=== PATIENT | male | born 1950 | race American Indian/Alaskan Native ===

== ENCOUNTER 2017-08-13 12:09 | Outpatient (CLI) | payer MEDICARE, OTHER ==
[2017-08-13 12:23] LABS: Mean Corpuscular HGB Conc 31 % (32-34); Mean Corpuscular Volume 81 fl (84-94); Platelet Count 193 K/mm3 (140-440); Red Blood Count 5.97 M/mm3 (3.65-5.03); Red Cell Distribution Width 14.8 % (13.2-15.2)
[2017-08-13 12:25] LABS: Hematocrit 48.2 % (35.5-45.6); Mean Corpuscular Hemoglobin 25 pg (28-32)
[2017-08-13 12:49] LABS: Alanine Aminotransferase 8 units/L (7-56); Albumin 4.3 g/dL (3.9-5); BUN/Creatinine Ratio 16; Blood Urea Nitrogen 13 mg/dL (9-20); Calcium 8.9 mg/dL (8.4-10.2); Hemolysis Index 1
[2017-08-13 12:59] LABS: Bilirubin,Direct < 0.2 mg/dL (0-0.2)
== END 2017-08-13 12:10 | disposition home or self-care (01) ==
LOC: LAB 12:09
PROVIDERS: ATTEND Specialist
DX: R56.9 Unspecified convulsions (principal); Q28.2 Arteriovenous malformation of cerebral vessels
CPT/HCPCS: 36415; 80053; 80185; 82248; 85027

== ENCOUNTER 2017-09-13 11:38 | Outpatient (CLI) | payer MEDICARE | END 2017-09-13 11:39 | disposition home or self-care (01) | LOC: LAB 11:38 | PROVIDERS: ATTEND Specialist | DX: G40.209 Localization-related (focal) (partial) symptomatic epilepsy and epileptic syndromes with complex partial seizures, not intractable, without status epilepticus (principal) | CPT/HCPCS: 36415 ==

== ENCOUNTER 2018-05-26 10:11 | Inpatient (IN) | payer MEDICARE ==
[2018-05-26] MEDS ORDERED: KEPPRA 1,000 MG in D5W 100 ML IV ONE (10:28)
--- NOTE | 2018-05-26 10:28 | Emergency Department Report ---
ED Seizure HPI - General Stated Complaint: SEIZURE Time Seen by Provider: 05/26/18 10:20 Source: patient, EMS Mode of arrival: Stretcher Limitations: Altered Mental Status - History of Present Illness Initial Comments: Patient is a 68-year-old male that presents emergency room with complaints of seizure activity. Report received from EMS. EMS states that the told him that he has not had a seizure for 9 months and has been controlled on his current medications. Patient is currently postictal and is not answering questions. Patient patient answered questions yes to everything. Patient is awake. No medication given by EMS. Patient lost control his bladder in route. is at bedside and states the patient has had 5 grand mal seizures and multiple absence seizures over the last 24 hours. states that the number of absence seizure too high to count. states the patient is compliant with medications I had seizures for 9 months. Patient had a recent med changes from Dilantin and carbamazepine. MD Complaint: seizure, loss of consciousness -: Sudden Description of Episode: loss of consciousness, tonic-clonic movement, bladder incontinence, post-event confusion -: second(s) Witnessed:: Yes Trauma: No Seizure History: known seizure disorder, compliant with medication Place: home Possible Precipitating Event: none Associated Symptoms: denies: chest pain, confusion, cough, diaphoresis, fever/ch ills, loss of appetite, malaise, rash, shortness of breath, syncope, weakness, tongue injury, shoulder dislocation Treatments Prior to Arrival: none - Related Data Home Medications Medication Instructions Recorded Confirmed Last Taken OXcarbazepine [Trileptal] 1,200 mg PO QAM 05/26/18 05/26/18 Unknown OXcarbazepine [Trileptal] 600 mg PO QPM 05/26/18 05/26/18 Unknown Pravastatin [Pravachol] 20 mg PO QHS 05/26/18 05/26/18 Unknown Tolterodine [Detrol LA] 2 mg PO QDAY 05/26/18 05/26/18 Unknown Ziprasidone HCl [Geodon] 80 mg PO DAILY 05/26/18 05/26/18 Unknown Allergies Allergy/AdvReac Type Severity Reaction Status Date / Time No Known Allergies Allergy Unverified 05/26/18 10:35 ED Review of Systems ROS: Stated complaint: SEIZURE Other details as noted in HPI Comment: Unobtainable due to pts medical conditions ED Past Medical Hx - Past Medical History Previous Medical History?: Yes Hx Seizures: Yes Additional medical history: avm. - Surgical History Past Surgical History?: No - Family History Family history: no significant - Social History Smoking Status: Never Smoker Substance Use Type: None - Medications Home Medications: Home Medications Medication Instructions Recorded Confirmed Last Taken Type OXcarbazepine [Trileptal] 1,200 mg PO QAM 05/26/18 05/26/18 Unknown History OXcarbazepine [Trileptal] 600 mg PO QPM 05/26/18 05/26/18 Unknown History Pravastatin [Pravachol] 20 mg PO QHS 05/26/18 05/26/18 Unknown History Tolterodine [Detrol LA] 2 mg PO QDAY 05/26/18 05/26/18 Unknown History Ziprasidone HCl [Geodon] 80 mg PO DAILY 05/26/18 05/26/18 Unknown History ED Physical Exam - General Limitations: Altered Mental Status General appearance: alert, in no apparent distress - Head Head exam: Present: atraumatic, normocephalic - Eye Eye exam: Present: normal appearance - ENT ENT exam: Present: mucous membranes moist - Neck Neck exam: Present: normal inspection - Respiratory Respiratory exam: Present: normal lung sounds bilaterally. Absent: respiratory distress - Cardiovascular Cardiovascular Exam: Present: regular rate, normal rhythm. Absent: systolic mu rmur, diastolic murmur, rubs, gallop - GI/Abdominal GI/Abdominal exam: Present: soft, normal bowel sounds - Rectal Rectal exam: Present: deferred - Extremities Exam Extremities exam: Present: normal inspection - Back Exam Back exam: Present: normal inspection - Neurological Exam Neurological exam: Present: alert, altered - Skin Skin exam: Present: warm, dry, intact, normal color. Absent: rash ED Course Vital Signs 05/26/18 05/26/18 10:29 10:32 Temperature 98.0 F 98.0 F Pulse Rate 94 H 94 H Respiratory 16 16 Rate Blood Pressure 156/92 Blood Pressure 156/92 [Right] O2 Sat by Pulse 97 16 L Oximetry - Reevaluation(s) Reevaluation #1: She's had multiple absence seizures in the ER. Patient still has not returned to baseline mentation. Patient has been given Ativan and Keppra. Patient will be admitted to the hospitalist service. Patient's family agrees with plan of care. 05/26/18 13:04 - Consultations Consultation #1: Hospitalist consultation for admission. Hospitalist to admit patient. Bridging orders placed 05/26/18 13:10 ED Medical Decision Making - Lab Data Result diagrams: 05/26/18 10:37 05/26/18 10:37 - EKG Data -: EKG Interpreted by [facility] EKG shows normal: sinus rhythm, axis, intervals, QRS complexes, ST-T waves Rate: normal - Radiology Data Radiology results: report reviewed CT HEAD WITHOUT CONTRAST INDICATION: Seizure. COMPARISON: September 2010 brain imaging and 05/23/2009 brain MRI. FINDINGS: Noncontrast head CT again demonstrates a large left frontal arteriovenous malformation measuring up to 6 x 3.1 cm on axial series 2, image 38 with few scattered calcifications. Numerous large draining veins/vessel tortuosity also noted throughout the left cerebral hemisphere, most prominent anterosuperiorly and parafalcine. Associated mass effect/effacement upon the left frontal horn also again noted. Approximately 2 cm left frontal white matter hypodensity/encephalomalacia also again noted on axial image 47, series 2, amongst others. No definite acute infarct, hemorrhage, mass effect or midline shift. Normal posterior fossa with preserved basilar cisterns. Normal imaged eye globes. Rightward nasal septal deviation anteriorly. Hypoplastic/aplastic left frontal sinus. Clear remainder imaged paranasal sinuses and mastoid air cells. Intact calvarium. Normal scalp. Few radiopaque dental materials. CONCLUSION: No acute intracranial CT abnormality with large left frontal AVM and its associated changes again noted, stable dating back to April 2009, as described. Please correlate. Thank you for the opportunity to participate in this patient's care. - Medical Decision Making Patient is a 68-year-old male presents emergency room with multiple uncontrolled seizures. Patient has a seizure history but has not had seizures for over 9 months. Patient has a history of AVM. CT is positive for no other acute process noted. Patient labs unremarkable. Patient has had multiple seizures. Patient had witnessed seizures here. Patient has 2 seizure types, patient has had absent and grand mal seizures. Patient to be admitted to the hospitalist service. Family is in agreement with plan of care. Patient is still altered and has not returned back to baseline. - Differential Diagnosis her mental status. Seizure. Seizure disorder. Noncompliance Critical Care Time: Yes Critical care attestation.: If time is entered above; I have spent that time in minutes in the direct care of this critically ill patient, excluding procedure time. Critical Care Time: 45 minutes ED Disposition Clinical Impression: AVM (arteriovenous malformation) brain, Seizure Uncontrolled seizures Qualifiers: Convulsion type: complex febrile Qualified Code(s): R56.01 - Complex febrile convulsions Altered mental status Qualifiers: Altered mental status type: unspecified Qualified Code(s): R41.82 - Altered mental status, unspecified Disposition: [id number] OP ADMIT IP TO THIS HOSP Is pt being admited?: Yes Does the pt Need Aspirin: No Condition: Critical Time of Disposition: 13:09
[2018-05-26] MEDS ORDERED: ATIVAN ONE (10:54)
[2018-05-26] MEDS ORDERED: ATIVAN IV ONE ×2 (11:00→13:17)
[2018-05-26] MEDS ORDERED: KEPPRA 1,000 MG/NS 0.75% 100ML 1,000 MG/100 ML BAG IV ONE (11:00)
[2018-05-26 11:14] LABS: Basophils % (Auto) 0.3 % (0.0-1.8); Hematocrit 47.1 % (35.5-45.6); Hemoglobin 14.8 gm/dl (11.8-15.2); Lymphocytes # (Auto) 0.7 K/mm3 (1.2-5.4); Lymphocytes % (Auto) 8.8 % (13.4-35.0); Mean Corpuscular HGB Conc 31 % (32-34); Mean Corpuscular Volume 80 fl (84-94); Monocytes # (Auto) 0.5 K/mm3 (0.0-0.8); Monocytes % (Auto) 7.1 % (0.0-7.3); Platelet Count 154 K/mm3 (140-440); Red Blood Count 5.87 M/mm3 (3.65-5.03); Red Cell Distribution Width 14.2 % (13.2-15.2)
[2018-05-26 11:32] LABS: Alanine Aminotransferase 9 units/L (7-56); Albumin 4.3 g/dL (3.9-5); BUN/Creatinine Ratio 8; Blood Urea Nitrogen 7 mg/dL (9-20); Calcium 9.2 mg/dL (8.4-10.2); Hemolysis Index 17
--- NOTE | 2018-05-26 12:10 | Cat Scan Report ---
CT HEAD WITHOUT CONTRAST INDICATION: Seizure. COMPARISON: September 2010 brain imaging and 05/23/2009 brain MRI. FINDINGS: Noncontrast head CT again demonstrates a large left frontal arteriovenous malformation measuring up to 6 x 3.1 cm on axial series 2, image 38 with few scattered calcifications. Numerous large draining veins/vessel tortuosity also noted throughout the left cerebral hemisphere, most prominent anterosuperiorly and parafalcine. Associated mass effect/effacement upon the left frontal horn also again noted. Approximately 2 cm left frontal white matter hypodensity/encephalomalacia also again noted on axial image 47, series 2, amongst others. No definite acute infarct, hemorrhage, mass effect or midline shift. Normal posterior fossa with preserved basilar cisterns. Normal imaged eye globes. Rightward nasal septal deviation anteriorly. Hypoplastic/aplastic left frontal sinus. Clear remainder imaged paranasal sinuses and mastoid air cells. Intact calvarium. Normal scalp. Few radiopaque dental materials. CONCLUSION: No acute intracranial CT abnormality with large left frontal AVM and its associated changes again noted, stable dating back to April 2009, as described. Please correlate. Thank you for the opportunity to participate in this patient's care.
[2018-05-26 16:02] LABS: Bilirubin,Urine NEG (Negative); Blood,Urine NEG (Negative); Color,Urine Straw (Yellow); Protein,Urine <15 mg/dL mg/dL (Negative); RBC,Urine < 1.0 /HPF (0.0-6.0); Urobilinogen,Urine < 2.0 mg/dL (<2.0)
[2018-05-26 16:13] LABS: Amphetamine Screen,Urine PRESUMPTIVE NEGATIVE; Benzodiazepines Screen,Urine PRESUMPTIVE NEGATIVE; Cannabinoid Screen,Urine PRESUMPTIVE NEGATIVE; Cocaine Screen,Urine PRESUMPTIVE NEGATIVE; Methadone Screen,Urine PRESUMPTIVE NEGATIVE; Opiate Screen,Urine PRESUMPTIVE NEGATIVE
[2018-05-26] MEDS ORDERED: ZOFRAN IV PRN (21:00)
[2018-05-26] MEDS ORDERED: TYLENOL PO PRN (21:00)
[2018-05-26] MEDS ORDERED: NACL 0.9% 1000 ML 1,000 ML IV SCH (21:00)
[2018-05-26] MEDS ORDERED: SODIUM CHLORIDE FLUSH SYRINGE 10 ML IV PRN (21:00)
--- NOTE | 2018-05-26 21:00 | History and Physical Report ---
History of Present Illness Date of examination: 05/26/18 Date of admission: 05/26/18 13:06 Chief complaint: Recurrent seizures for 1 day History of present illness: 68-year-old male with history of seizures on Trileptal brought in by EMS for recurrent seizures. Patient's last seizure was 9 months ago. Patient is currently postictal and unable to answer questions. As for EMS patient lost control of his bladder. No tongue biting. No fever or chills. Precipitating factors. No exacerbating or relieving factors. is at bedside. states that patient hadn't 5 generalized seizures apparently and multiple absence seizures over the last 24 hours. Apparently the patient has been taking his medications and compliant with the prescriptions. Past Medical History Previous Medical History?: Yes Hx Seizures: Yes Additional medical history: avm. Surgical History Past Surgical History?: No Family History Family history: no significant Social History Smoking Status: Never Smoker Substance Use Type: None Medications Home Medications: Home Medications Medication Instructions Recorded Confirmed Last Taken Type OXcarbazepine [Trileptal] 1,200 mg PO QAM 05/26/18 05/26/18 Unknown History OXcarbazepine [Trileptal] 600 mg PO QPM 05/26/18 05/26/18 Unknown History Pravastatin [Pravachol] 20 mg PO QHS 05/26/18 05/26/18 Unknown History Tolterodine [Detrol LA] 2 mg PO QDAY 05/26/18 05/26/18 Unknown History Ziprasidone HCl [Geodon] 80 mg PO DAILY 05/26/18 05/26/18 Unknown History Review of Systems ROS: Stated complaint: SEIZURE Other details as noted in HPI Comment: Unobtainable due to pts medical conditions Medications and Allergies Allergies Allergy/AdvReac Type Severity Reaction Status Date / Time No Known Allergies Allergy Unverified 05/26/18 10:35 Home Medications Medication Instructions Recorded Confirmed Last Taken Type OXcarbazepine [Trileptal] 1,200 mg PO QAM 05/26/18 05/26/18 Unknown History OXcarbazepine [Trileptal] 600 mg PO QPM 05/26/18 05/26/18 Unknown History Pravastatin [Pravachol] 20 mg PO QHS 05/26/18 05/26/18 Unknown History Tolterodine [Detrol LA] 2 mg PO QDAY 05/26/18 05/26/18 Unknown History Ziprasidone HCl [Geodon] 80 mg PO DAILY 05/26/18 05/26/18 Unknown History Exam - Constitutional Vitals: Temp Pulse Resp BP Pulse Ox 98.5 F 92 H 18 126/73 100 05/26/18 14:36 05/26/18 14:36 05/26/18 14:36 05/26/18 14:36 05/26/18 14:36 General appearance: Present: no acute distress, well-nourished - EENT Eyes: Present: PERRL ENT: hearing intact, clear oral mucosa - Neck Neck: Present: supple, normal ROM - Respiratory Respiratory effort: normal Respiratory: bilateral: CTA - Cardiovascular Heart rate: 78 Rhythm: regular Heart Sounds: Present: S1 & S2. Absent: rub, click - Extremities Extremities: no ischemia, pulses intact, pulses symmetrical, No edema Peripheral Pulses: within normal limits - Abdominal General gastrointestinal: Present: soft, non-tender, non-distended, normal bowel sounds Male genitourinary: Present: normal - Rectal Rectal Exam: deferred - Integumentary Integumentary: Present: clear, warm, dry - Musculoskeletal Musculoskeletal: strength equal bilaterally, other (altered sensorium) - Neurologic Neurologic: CNII-XII intact, moves all extremities - Allied Health Allied health notes reviewed: nursing, case management Results - Labs CBC & Chem 7: 05/26/18 10:37 05/26/18 10:37 Labs: Laboratory Last Values WBC 7.6 K/mm3 (4.5-11.0) 05/26/18 10:37 RBC 5.87 M/mm3 (3.65-5.03) H 05/26/18 10:37 Hgb 14.8 gm/dl (11.8-15.2) 05/26/18 10:37 Hct 47.1 % (35.5-45.6) H 05/26/18 10:37 MCV 80 fl (84-94) L 05/26/18 10:37 MCH 25 pg (28-32) L 05/26/18 10:37 MCHC 31 % (32-34) L 05/26/18 10:37 RDW 14.2 % (13.2-15.2) 05/26/18 10:37 Plt Count 154 K/mm3 (140-440) 05/26/18 10:37 Lymph % (Auto) 8.8 % (13.4-35.0) L 05/26/18 10:37 [place] % (Auto) 7.1 % (0.0-7.3) 05/26/18 10:37 Eos % (Auto) 0.0 % (0.0-4.3) 05/26/18 10:37 Baso % (Auto) 0.3 % (0.0-1.8) 05/26/18 10:37 Lymph # 0.7 K/mm3 (1.2-5.4) L 05/26/18 10:37 [place] # 0.5 K/mm3 (0.0-0.8) 05/26/18 10:37 Eos # 0.0 K/mm3 (0.0-0.4) 05/26/18 10:37 Baso # 0.0 K/mm3 (0.0-0.1) 05/26/18 10:37 Seg Neutrophils % 83.8 % (40.0-70.0) H 05/26/18 10:37 Seg Neutrophils # 6.3 K/mm3 (1.8-7.7) 05/26/18 10:37 Sodium 135 mmol/L (137-145) L 05/26/18 10:37 Potassium 4.1 mmol/L (3.6-5.0) 05/26/18 10:37 Chloride 95.3 mmol/L (98-107) L 05/26/18 10:37 Carbon Dioxide 23 mmol/L (22-30) 05/26/18 10:37 Anion Gap 21 mmol/L 05/26/18 10:37 BUN 7 mg/dL (9-20) L 05/26/18 10:37 Creatinine 0.9 mg/dL (0.8-1.5) 05/26/18 10:37 Estimated GFR > 60 ml/min 05/26/18 10:37 BUN/Creatinine Ratio 8 % 05/26/18 10:37 Glucose 142 mg/dL (75-100) H 05/26/18 10:37 Calcium 9.2 mg/dL (8.4-10.2) 05/26/18 10:37 Total Bilirubin 0.60 mg/dL (0.1-1.2) 05/26/18 10:37 AST 18 units/L (5-40) 05/26/18 10:37 ALT 9 units/L (7-56) 05/26/18 10:37 Alkaline Phosphatase 96 units/L (35-129) 05/26/18 10:37 Total Protein 7.7 g/dL (6.3-8.2) 05/26/18 10:37 Albumin 4.3 g/dL (3.9-5) 05/26/18 10:37 Albumin/Globulin Ratio 1.3 % 05/26/18 10:37 Urine Color Straw (Yellow) 05/26/18 15:12 Urine Turbidity Clear (Clear) 05/26/18 15:12 Urine pH 7.0 (5.0-7.0) 05/26/18 15:12 Ur Specific [place] 1.002 (1.003-1.030) L 05/26/18 15:12 Urine Protein <15 mg/dl mg/dL (Negative) 05/26/18 15:12 Urine Glucose (UA) Neg mg/dL (Negative) 05/26/18 15:12 Urine Ketones Neg mg/dL (Negative) 05/26/18 15:12 Urine Blood Neg (Negative) 05/26/18 15:12 Urine Nitrite Neg (Negative) 05/26/18 15:12 Urine Bilirubin Neg (Negative) 05/26/18 15:12 Urine Urobilinogen < 2.0 mg/dL (<2.0) 05/26/18 15:12 Ur Leukocyte Esterase Neg (Negative) 05/26/18 15:12 Urine WBC (Auto) 1.0 /HPF (0.0-6.0) 05/26/18 15:12 Urine RBC (Auto) < 1.0 /HPF (0.0-6.0) 05/26/18 15:12 Urine Opiates Screen Presumptive negative 05/26/18 15:12 Urine Methadone Screen Presumptive negative 05/26/18 15:12 Ur Barbiturates Screen Presumptive negative 05/26/18 15:12 Phenytoin 12.9 ug/mL (10.0-20.0) 05/26/18 10:37 Carbamazepine 2.0 ug/mL (4-12) L 05/26/18 10:37 Ur Phencyclidine Scrn Presumptive negative 05/26/18 15:12 Ur Amphetamines Screen Presumptive negative 05/26/18 15:12 U Benzodiazepines Scrn Presumptive negative 05/26/18 15:12 Urine Cocaine Screen Presumptive negative 05/26/18 15:12 U Marijuana (THC) Screen Presumptive negative 05/26/18 15:12 Drugs of Abuse Note Disclamer 05/26/18 15:12 Plasma/Serum Alcohol < 0.01 % (0-0.07) 05/26/18 10:37 - Imaging and Cardiology EKG: report reviewed Imaging and Cardiology: EKG Sinus rhythm Left atrial enlargement Borderline ST elevation CT head CONCLUSION: No acute intracranial CT abnormality with large left frontal AVM and its associated changes again noted, stable dating back to April 2009, as described. Please correlate. Assessment and Plan Advance Directives: Yes (full code) VTE prophylaxis?: Chemical Plan of care discussed with patient/family: Yes - Patient Problems (1) Status epilepticus Current Visit: Yes Status: Acute Plan to address problem: Patient initiated on IV Keppra Patient on Trileptal Keppra IV added Neurology consult requested Carbamazepine level low Patient probably noncompliant (2) AVM (arteriovenous malformation) brain Current Visit: Yes Status: Chronic Plan to address problem: Stable (3) Hyperlipidemia Current Visit: Yes Status: Chronic Qualifiers: Hyperlipidemia type: mixed hyperlipidemia Qualified Code(s): E78.2 - Mixed hyperlipidemia Plan to address problem: Continue statins (4) OAB (overactive bladder) Current Visit: Yes Status: Chronic Plan to address problem: Continue Detrol (5) Hyponatremia Current Visit: Yes Status: Acute Plan to address problem: Mild IV fluids for now (6) DVT prophylaxis Current Visit: Yes Status: Acute Plan to address problem: Patient initiated on Lovenox and GI prophylaxis
[2018-05-26] MEDS ORDERED: DILAUDID IV PRN (21:01)
[2018-05-26] MEDS: KEPPRA 750 MG in D5W 100 ML IV SCH (22:42)
[2018-05-26] MEDS: PEPCID PO SCH (22:43)
[2018-05-26] MEDS: SODIUM CHLORIDE FLUSH SYRINGE 10 ML IV SCH (22:43)
[2018-05-26] MEDS: PERCOCET 5/325 PO PRN (23:09)
[2018-05-27] MEDS ORDERED: ATIVAN IV ONE (03:07)
[2018-05-27] MEDS: PERCOCET 5/325 PO PRN (05:39)
[2018-05-27 06:21] LABS: Basophils % (Auto) 0.4 % (0.0-1.8); Lymphocytes # (Auto) 1.2 K/mm3 (1.2-5.4); Lymphocytes % (Auto) 18.8 % (13.4-35.0); Mean Corpuscular HGB Conc 31 % (32-34); Mean Corpuscular Volume 81 fl (84-94); Monocytes # (Auto) 0.7 K/mm3 (0.0-0.8); Monocytes % (Auto) 10.8 % (0.0-7.3); Platelet Count 164 K/mm3 (140-440); Red Blood Count 6.22 M/mm3 (3.65-5.03); Red Cell Distribution Width 14.2 % (13.2-15.2)
[2018-05-27 06:29] LABS: Hematocrit 50.2 % (35.5-45.6); Hemoglobin 15.7 gm/dl (11.8-15.2)
[2018-05-27 06:49] LABS: Alanine Aminotransferase 10 units/L (7-56); Albumin 4.5 g/dL (3.9-5); BUN/Creatinine Ratio 10; Blood Urea Nitrogen 10 mg/dL (9-20); Calcium 9.5 mg/dL (8.4-10.2); Hemolysis Index 5
[2018-05-27] MEDS: SODIUM CHLORIDE FLUSH SYRINGE 10 ML IV SCH ×2 (09:30→22:56)
[2018-05-27] MEDS: PEPCID PO SCH ×2 (09:30→22:58)
[2018-05-27] MEDS: KEPPRA 750 MG in D5W 100 ML IV SCH ×2 (09:30→22:56)
[2018-05-27] MEDS: ATIVAN IV PRN ×2 (12:45→19:47)
--- NOTE | 2018-05-27 14:33 | Progress Note ---
Assessment and Plan /Acute encephalopathy Postictal versus acute psychosis versus delirium We'll resume his home medications for bipolar disorder, and seizure I'll also consult psych /Status epilepticus Patient initiated on IV Keppra We'll also continue Trileptal Neurology consult requested Carbamazepine level low, Patient probably noncompliant /AVM (arteriovenous malformation) brain Stable, continue to have outpatient follow-up / Hyperlipidemia: Continue statins / OAB (overactive bladder) Continue Detrol / Hyponatremia IV fluids for now /Bipolar disorder Will resume his home medications / DVT and GI prophylaxis Patient initiated on Lovenox and PPI Brief history: 68-year-old male with history of seizures on Trileptal compliant with his medication brought in by EMS for recurrent seizures. stated that patient had 5 generalized seizures apparently and multiple absence seizures over the last 24 hours. Patient also has history of bipolar disorder and AVM. He was given Keppra IV in the ER along with the department and admitted to the hospital for further evaluation and management. Physical exam: GENERAL: well-developed and well-nourished -[place] male lying on bed appeared very agitated confused and restrained HEENT: Normocephalic. Atraumatic. No conjunctival congestion or icterus. Patient has moist mucous membranes. NECK: Supple. Trachea midline. CHEST/LUNGS: Clear to auscultated bilaterally, breathing nonlabored. No wheezes crackles or rhonchi. HEART/CARDIOVASCULAR: Regular in rate and rhythm. S1 and S2 positive. ABDOMEN: Abdomen is soft, nontender. Patient has normal bowel sounds. SKIN: There is no rash. Warm and dry. NEURO: No focal motor deficit. MUSCULOSKELETAL: No joint effusion or tenderness. EXTRIMITY: No edema, no cyanosis or clubbing. PSYCH: Agitated Subjective Date of service: 05/27/18 Interval history: Patient seen and examined. Medical records and medication list reviewed. Patient appears very agitated, requiring restraint at bedside, updated Objective - Constitutional Vitals: Vital Signs - 12hr 05/27/18 05/27/18 05/27/18 02:50 06:00 10:00 Temperature 97.4 F L Pulse Rate 58 L 74 78 Respiratory 18 Rate Blood Pressure 99/52 O2 Sat by Pulse 86 Oximetry - Labs CBC & Chem 7: 05/27/18 06:05 05/27/18 06:05 Labs: Abnormal lab results 05/26/18 05/27/18 05/27/18 Range/Units 15:12 06:05 06:05 RBC 6.22 H (3.65-5.03) M/mm3 Hgb 15.7 H (11.8-15.2) gm/dl Hct 50.2 H (35.5-45.6) % MCV 81 L (84-94) fl MCH 25 L (28-32) pg MCHC 31 L (32-34) % [place] % (Auto) 10.8 H (0.0-7.3) % Glucose 115 H (75-100) mg/dL Ur Specific [place] 1.002 L (1.003-1.030)
--- NOTE | 2018-05-27 17:51 | Consultation ---
History of Present Illness Consult date: 05/27/18 Chief complaint: seizure History of present illness: This is a 68 YO m with history of seizures and AVM who presented to the ED after several seizures. All info is per chart, no fmaily is available and pt is unable to give history. He is awake but just got Ativan and seems to be delirious. Past History Past Medical History: seizures, other (left frontal AVM) Past Surgical History: No surgical history Social history: Family history: hypertension Medications and Allergies Allergies Allergy/AdvReac Type Severity Reaction Status Date / Time No Known Allergies Allergy Unverified 05/26/18 10:35 Home Medications Medication Instructions Recorded Confirmed Last Taken Type OXcarbazepine [Trileptal] 1,200 mg PO QAM 05/26/18 05/26/18 Unknown History OXcarbazepine [Trileptal] 600 mg PO QPM 05/26/18 05/26/18 Unknown History Pravastatin [Pravachol] 20 mg PO QHS 05/26/18 05/26/18 Unknown History Tolterodine [Detrol LA] 2 mg PO QDAY 05/26/18 05/26/18 Unknown History Ziprasidone HCl [Geodon] 80 mg PO DAILY 05/26/18 05/26/18 Unknown History Active Meds: Active Medications Acetaminophen (Tylenol) 650 mg PO Q4H PRN PRN Reason: Pain MILD(1-3)/Fever >100.5/[place] Enoxaparin Sodium (Lovenox) 40 mg SUB-Q QDAY@2200 HELEN Famotidine (Pepcid) 20 mg PO BID [facility] Last Admin: 05/27/18 09:30 Dose: 20 mg Documented by: Hydromorphone HCl (Dilaudid) 0.5 mg IV Q3H PRN PRN Reason: Pain , Severe (7-10) Levetiracetam 750 mg/ Dextrose 107.5 mls @ 400 mls/hr IV Q12HR [facility] Last Admin: 05/27/18 09:30 Dose: 400 mls/hr Documented by: Lorazepam (Ativan) 2 mg IV Q4H PRN PRN Reason: Agitation Last Admin: 05/27/18 12:45 Dose: 2 mg Documented by: Ondansetron HCl (Zofran) 4 mg IV Q8H PRN PRN Reason: Nausea And Vomiting Oxcarbazepine (Trileptal) 600 mg PO QPM HELEN Oxcarbazepine (Trileptal) 1,200 mg PO QAM [facility] Oxycodone/Acetaminophen (Percocet 5/325) 1 tab PO Q6H PRN PRN Reason: Pain, Moderate (4-6) Last Admin: 05/27/18 05:39 Dose: 1 tab Documented by: Pravastatin Sodium (Pravachol) 20 mg PO QHS [facility] Sodium Chloride (Sodium Chloride Flush Syringe 10 Ml) 10 ml IV BID [facility] Last Admin: 05/27/18 09:30 Dose: 10 ml Documented by: Sodium Chloride (Sodium Chloride Flush Syringe 10 Ml) 10 ml IV PRN PRN PRN Reason: LINE FLUSH Tolterodine Tartrate (Detrol La) 2 mg PO QDAY HELEN Ziprasidone (Geodon) 80 mg PO QDAY [facility] Review of Systems ROS unobtainable: due to mental status Physical Examination - Vital Signs Vital Signs: Vital Signs Pulse Resp 75 11 L 05/26/18 10:22 05/26/18 10:22 - EENT EENT: Present: mucous membranes moist - Respiratory Respiratory: Present: lungs clear - Cardiovascular Cardiovascular: Present: regular rate - Neurologic Cranial nerve examination: PERRL, EOMI, V1/V2/V3 grossly intact, face symmetric, tongue midline Detailed motor examination: grossly full strength in (restrained) Reflexes: 1+: ankle, bicep, knee, tricep Results - Laboratory Findings CBC and BMP: 05/27/18 06:05 05/27/18 06:05 Abnormal Lab Findings: Abnormal Labs 05/26/18 05/26/18 05/26/18 10:37 10:37 10:37 RBC 5.87 H Hgb Hct 47.1 H MCV 80 L MCH 25 L MCHC 31 L Lymph % (Auto) 8.8 L [place] % (Auto) Lymph # 0.7 L Seg Neutrophils % 83.8 H Sodium 135 L Chloride 95.3 L BUN 7 L Glucose 142 H Ur Specific [place] Carbamazepine 2.0 L 05/26/18 05/27/18 05/27/18 15:12 06:05 06:05 RBC 6.22 H Hgb 15.7 H Hct 50.2 H MCV 81 L MCH 25 L MCHC 31 L Lymph % (Auto) [place] % (Auto) 10.8 H Lymph # Seg Neutrophils % Sodium Chloride BUN Glucose 115 H Ur Specific [place] 1.002 L Carbamazepine - Diagnostic Findings Additional findings: CT head only with stable left frontal AVM, appears unchanged since 2009 Assessment and Plan Intractable seizures in the setting of AVM Recommend: Continue Keppra and Trileptal as currently scheduled. Switch Keppra to PO when appropriate. Pt appears delirious as well. Would try to avoid benzos when possible as this may exacerbate the delirium. No obvious infection/other meds causing this Will order MRI and MRA. AVM appears chronic but would like to follow. If changed would consult neurosurgery. Continue care for all medical issues as you are doing
[2018-05-27] MEDS ORDERED: GEODON PO ONE (22:00)
[2018-05-27] MEDS: LOVENOX SUB-Q SCH (22:56)
[2018-05-27] MEDS: PRAVACHOL PO SCH (22:58)
[2018-05-28] MEDS: ATIVAN IV PRN (03:05)
[2018-05-28] MEDS: DETROL LA PO SCH (09:22)
[2018-05-28] MEDS: TRILEPTAL PO SCH ×2 (09:23→17:44)
[2018-05-28] MEDS: PEPCID PO SCH ×2 (09:23→22:00)
[2018-05-28] MEDS: SODIUM CHLORIDE FLUSH SYRINGE 10 ML IV SCH ×2 (09:24→21:34)
[2018-05-28] MEDS: KEPPRA 750 MG in D5W 100 ML IV SCH ×2 (09:24→21:35)
[2018-05-28] MEDS ORDERED: GEODON PO SCH (10:00)
[2018-05-28] MEDS ORDERED: NON-FORMULARY (Ziprasidone Hcl [Geodon] 80 MG) PO SCH (10:00)
[2018-05-28] MEDS ORDERED: HALDOL IM PRN (10:37)
--- NOTE | 2018-05-28 10:45 | Progress Note ---
Assessment and Plan /Acute encephalopathy Postictal versus acute psychosis versus delirium Resumed his home medications for bipolar disorder, and seizure consulted psych, will wait for recommendation /Status epilepticus Patient initiated on IV Keppra We'll also continue Trileptal Neurology consult requested- ordered MRI brain Carbamazepine level low, Patient probably noncompliant /AVM (arteriovenous malformation) brain Stable, continue to have outpatient follow-up / Hyperlipidemia: Continue statins / OAB (overactive bladder) Continue Detrol / Hyponatremia IV fluids for now /Bipolar disorder Will resume his home medications / DVT and GI prophylaxis Patient initiated on Lovenox and PPI Brief history: 68-year-old male with history of seizures on Trileptal compliant with his medication brought in by EMS for recurrent seizures. stated that patient had 5 generalized seizures apparently and multiple absence seizures over the last 24 hours. Patient also has history of bipolar disorder and AVM. He was g iven Keppra IV in the ER along with the department and admitted to the hospital for further evaluation and management. Physical exam: GENERAL: well-developed and well-nourished -[place] male lying on bed appeared NAD HEENT: Normocephalic. Atraumatic. No conjunctival congestion or icterus. Patient has moist mucous membranes. NECK: Supple. Trachea midline. CHEST/LUNGS: Clear to auscultated bilaterally, breathing nonlabored. No wheezes crackles or rhonchi. HEART/CARDIOVASCULAR: Regular in rate and rhythm. S1 and S2 positive. ABDOMEN: Abdomen is soft, nontender. Patient has normal bowel sounds. SKIN: There is no rash. Warm and dry. NEURO: No focal motor deficit. MUSCULOSKELETAL: No joint effusion or tenderness. EXTRIMITY: No edema, no cyanosis or clubbing. PSYCH: clam Subjective Date of service: 05/28/18 Interval history: Patient seen and examined. Medical records and medication list reviewed. Patient appears clam today, off restraint at bedside, updated Objective - Constitutional Vitals: Vital Signs - 12hr 05/28/18 05/28/18 03:16 07:39 Temperature 98.6 F 98.4 F Pulse Rate 63 72 Respiratory 20 20 Rate Blood Pressure 120/71 Blood Pressure 129/73 [Right] O2 Sat by Pulse 98 97 Oximetry - Labs CBC & Chem 7: 05/27/18 06:05 05/27/18 06:05
--- NOTE | 2018-05-28 17:43 | Consultation ---
History of Present Illness - Reason for Consult Consult date: 05/28/18 Reason for consult: psychiatric evaluation - Chief Complaint Chief complaint: "hey" - History of Present Psychiatric Illness 68 year old John seen for psychiatric evaluation on [facility]. His provided collateral. She discussed his history of events leading to current presentation. He was drowsy and did not answer question. She expressed concern about the medications he was given to sedate him. She reports his behavior change has occurred since the seizures and he was not experiencing mental status changes prior. She states he has been taking geodon for years, after his PCP told him he is bipolar. His neurologist has also discussed how large, left frontal AVM has affected his mood. His neurologist retired and he has not found a new one who takes his insurance. Medications and Allergies Allergies Allergy/AdvReac Type Severity Reaction Status Date / Time No Known Allergies Allergy Unverified 05/26/18 10:35 Home Medications Medication Instructions Recorded Confirmed Last Taken Type OXcarbazepine [Trileptal] 1,200 mg PO QAM 05/26/18 05/26/18 Unknown History OXcarbazepine [Trileptal] 600 mg PO QPM 05/26/18 05/26/18 Unknown History Pravastatin [Pravachol] 20 mg PO QHS 05/26/18 05/26/18 Unknown History Tolterodine [Detrol LA] 2 mg PO QDAY 05/26/18 05/26/18 Unknown History Ziprasidone HCl [Geodon] 80 mg PO DAILY 05/26/18 05/26/18 Unknown History Active Meds: Active Medications Acetaminophen (Tylenol) 650 mg PO Q4H PRN PRN Reason: Pain MILD(1-3)/Fever >100.5/CARDONA Enoxaparin Sodium (Lovenox) 40 mg SUB-Q QDAY@2200 [facility] Last Admin: 05/27/18 22:56 Dose: 40 mg Documented by: Famotidine (Pepcid) 20 mg PO BID [facility] Last Admin: 05/28/18 09:23 Dose: 20 mg Documented by: Haloperidol Lactate (Haldol) 5 mg IM Q6H PRN PRN Reason: Agitation Last Admin: 05/28/18 17:41 Dose: 5 mg Documented by: Hydromorphone HCl (Dilaudid) 0.5 mg IV Q3H PRN PRN Reason: Pain , Severe (7-10) Levetiracetam 750 mg/ Dextrose 107.5 mls @ 400 mls/hr IV Q12HR [facility] Last Admin: 05/28/18 09:24 Dose: 400 mls/hr Documented by: Ondansetron HCl (Zofran) 4 mg IV Q8H PRN PRN Reason: Nausea And Vomiting Oxcarbazepine (Trileptal) 600 mg PO QPM [facility] Oxcarbazepine (Trileptal) 1,200 mg PO QAM [facility] Last Admin: 05/28/18 09:23 Dose: 1,200 mg Documented by: Oxycodone/Acetaminophen (Percocet 5/325) 1 tab PO Q6H PRN PRN Reason: Pain, Moderate (4-6) Last Admin: 05/27/18 05:39 Dose: 1 tab Documented by: Pravastatin Sodium (Pravachol) 20 mg PO QHS [facility] Last Admin: 05/27/18 22:58 Dose: Not Given Documented by: Sodium Chloride (Sodium Chloride Flush Syringe 10 Ml) 10 ml IV BID [facility] Last Admin: 05/28/18 09:24 Dose: 10 ml Documented by: Sodium Chloride (Sodium Chloride Flush Syringe 10 Ml) 10 ml IV PRN PRN PRN Reason: LINE FLUSH Last Admin: 05/27/18 19:47 Dose: 10 ml Documented by: Tolterodine Tartrate (Detrol La) 2 mg PO QDAY [facility] Last Admin: 05/28/18 09:22 Dose: 2 mg Documented by: Ziprasidone (Geodon) 80 mg PO QDAY [facility] Last Admin: 05/28/18 09:23 Dose: 80 mg Documented by: Past psychiatric history - Past Medical History Past Medical History: seizures, other (large left frontal AVM assumed to be present from -according to ) - Social History Social history: lives with family, other (was previously a kindergarten prep teacher) Mental Status Exam - Vital signs Last Vital Signs Temp 98.6 F 05/28/18 13:57 Pulse 76 05/28/18 13:57 Resp 20 05/28/18 13:57 BP 112/67 05/28/18 13:57 Pulse Ox 97 05/28/18 13:57 - Exam Narrative exam: drowsy and unable to assess mental status Orientation: place, person Results Result Diagrams: 05/27/18 06:05 05/27/18 06:05 All other labs normal. Assessment and Plan Assessment and plan: Impression: seizures (status epilepticus) Impulse control disorder likely secondary to left frontal AVM. r/o bipolar disorder Recommendation: hold geodon as it can lower the threshold for seizures. His is concerned about his cognition and drowsiness since the seizures. Although, she states he is better today than yesterday. dispo: He does not meet criteria for inpatient psychiatric treament. GCAL info provided to find psychiatrists as an outpatient Staffed with Dr. Krystina Quintana
[2018-05-28] MEDS: LOVENOX SUB-Q SCH (21:35)
[2018-05-28] MEDS: PRAVACHOL PO SCH (21:59)
[2018-05-29] MEDS: KEPPRA 750 MG in D5W 100 ML IV SCH (09:25)
--- NOTE | 2018-05-29 10:33 | Progress Note ---
Assessment and Plan /Acute encephalopathy Postictal versus acute psychosis versus delirium Resumed his home medications for bipolar disorder, and seizure consulted psych, recommended to hold geodone /Status epilepticus Patient initiated on IV Keppra We'll also continue Trileptal Neurology consult requested- ordered MRI brain Carbamazepine level low, Patient probably noncompliant /AVM (arteriovenous malformation) brain Stable, continue to have outpatient follow-up / Hyperlipidemia: Continue statins / OAB (overactive bladder) Continue Detrol / Hyponatremia IV fluids for now /Bipolar disorder will hold his geodone, and monitor for now / DVT and GI prophylaxis Patient initiated on Lovenox and PPI Brief history: 68-year-old male with history of seizures on Trileptal compliant with his medication brought in by EMS for recurrent seizures. stated that patient had 5 generalized seizures apparently and multiple absence seizures over the last 24 hours. Patient also has history of bipolar disorder and AVM. He was given Keppra IV in the ER along with the department and admitted to the hospital for further evaluation and management. Physical exam: GENERAL: well-developed and well-nourished -Chinese male lying on bed appeared NAD HEENT: Normocephalic. Atraumatic. No conjunctival congestion or icterus. Patient has moist mucous membranes. NECK: Supple. Trachea midline. CHEST/LUNGS: Clear to auscultated bilaterally, breathing nonlabored. No wheezes crackles or rhonchi. HEART/CARDIOVASCULAR: Regular in rate and rhythm. S1 and S2 positive. ABDOMEN: Abdomen is soft, nontender. Patient has normal bowel sounds. SKIN: There is no rash. Warm and dry. NEURO: No focal motor deficit. MUSCULOSKELETAL: No joint effusion or tenderness. EXTRIMITY: No edema, no cyanosis or clubbing. PSYCH: clam Subjective Date of service: 05/29/18 Interval history: Patient seen and examined. Medical records and medication list reviewed. Patient appears much clam today and more coherent at bedside, updated Objective - Constitutional Vitals: Vital Signs - 12hr 05/29/18 05/29/18 05/29/18 01:43 01:53 07:30 Temperature 97.3 F L 97.7 F Pulse Rate 73 Respiratory 20 18 Rate Blood Pressure 88/53 96/57 Blood Pressure 116/68 [Right] O2 Sat by Pulse 97 Oximetry - Labs CBC & Chem 7: 05/27/18 06:05 05/27/18 06:05
[2018-05-29] MEDS: PEPCID PO SCH ×2 (10:50→21:26)
[2018-05-29] MEDS: DETROL LA PO SCH (10:50)
[2018-05-29] MEDS: TRILEPTAL PO SCH ×2 (10:51→18:06)
[2018-05-29] MEDS: SODIUM CHLORIDE FLUSH SYRINGE 10 ML IV SCH ×2 (10:51→21:30)
--- NOTE | 2018-05-29 17:46 | Progress Note ---
Subjective - Reason for Consult Consult date: 05/29/18 Reason for consult: follow up - Chief Complaint Chief complaint: 68 year old John seen for psychiatric evaluation on [facility]. His provided collateral. She discussed his history of events leading to current presentation. She expressed concern about the medications he was given to sedate him. She reports his behavior change has occurred since the seizures and he was not experiencing mental status changes prior. She states he has been taking geodon for years, after his PCP told him he is bipolar. His neurologist has also discussed how large, left frontal AVM has affected his mood. His neurologist retired and he has not found a new one who takes his insurance. He is sitting up in a chair with complaints of muscle tension in neck and headache after lying in bed for the past 2 days. Geodon was held due to concerns with sedation. He would like to hold the geodon and discuss with outpatient psychiatry or PCP. He was informed of the mood stabilizing properties of oxycarbazepine. Mental Status Exam - Vital signs Last Vital Signs Temp 97.7 F 05/29/18 07:30 Pulse 73 05/29/18 10:00 Resp 18 05/29/18 07:30 BP 116/68 05/29/18 07:30 Pulse Ox 97 05/29/18 07:30 - Exam Orientation: time, place, person Affect: flat Mood: calm Thought content: other (focused on having headache and muscle tension in neck) Thought Process: Intact Perceptions: none Concentration: distractible Motor activity: other (slow) Level of consciousness: alert Memory: Recent Impaired (related to recent post-ictal state) Interaction: cooperative Assessment and Plan Impression: seizures (status epilepticus) Impulse control disorder likely secondary to left frontal AVM. r/o bipolar disorder Recommendation: hold geodon as it can lower the threshold for seizures. His is concerned about his cognition and drowsiness since the seizures. He is improving daily with cognition. dispo: He does not meet criteria for inpatient psychiatric treament. GCAL info provided to find psychiatrists as an outpatient In 24 hours, determine if there are concerns with his mental status now that he is not taking geodon. Staffed with Dr. Krystina Quintana
[2018-05-29] MEDS: KEPPRA PO SCH (21:24)
[2018-05-29] MEDS: PRAVACHOL PO SCH (21:25)
[2018-05-29] MEDS: LOVENOX SUB-Q SCH (21:27)
[2018-05-30 08:58] VITALS: BP 112/62
[2018-05-30] MEDS: KEPPRA PO SCH (10:35)
[2018-05-30] MEDS: PEPCID PO SCH (10:36)
[2018-05-30] MEDS: DETROL LA PO SCH (10:36)
[2018-05-30] MEDS: TRILEPTAL PO SCH (10:37)
--- NOTE | 2018-05-30 11:12 | Progress Note ---
Subjective - Reason for Consult Consult date: 05/30/18 Reason for consult: Psychiatry Follow-up - Chief Complaint Chief complaint: "How are you" 68 year old AA male seen for psychiatric evaluation on [facility]. Today the patient is calm and cooperative during the assessment. He was able to recall 1/3 numbers in 5 mins, but could not state the current [place] President when asked. He was able to ID his and why he was brought to the hospital. Per collateral information from his Debbie Fuentes, who was at the bedside she stated the her was dx with bipolar do by a PCP, not a psychiatrist. She was asked about her mental status, she stated, "He is getting better." The patient denies SI/HI's asd AVH's. He denies being depressed or anxious when asked. Mental Status Exam - Vital signs Last Vital Signs Temp 98.7 F 05/30/18 07:41 Pulse 70 05/30/18 07:41 Resp 18 05/30/18 07:41 BP 112/62 05/30/18 07:41 Pulse Ox 97 05/30/18 07:41 - Exam Narrative exam: MSE: Appearance: calm, cooperative Behavior: regular eye contact Speech: regular rate and tone Mood: "okay" Affect: congruent to mood Thought Process: circumstantial Thought Content: denies SI/HI's and AVH's Motor Activity: ambulatory Cognition: A/O x2, with some confusion Insight: variable Judgment: variable to fair Assessment and Plan Impression: Seizures (status epilepticus). Impulse control disorder likely secondary to left frontal AVM. Today the patient is calm and cooperative during the assessment. DDx: R/O Bipolar DO Recommendation/Plan: Hold Geodon as it can lower the threshold for seizures. The patient and the patient's want to see a psychiatrist before Geodon is ini tiated. Psy sign off. Dispo: The patient can follow up with [facility] for outpatient psy services. Will staff with Dr Ritesh Quintana.
--- NOTE | 2018-05-30 13:48 | Discharge Summary ---
Providers - Providers Date of Admission: 05/26/18 13:06 Date of discharge: 05/30/18 Attending physician: ILYA ROSENTHAL 05/26/18 21:01 Consult to Physician [CONS] Routine Comment: left mess. evans kwong [id number]/ amee Consulting Provider: MYCHAL LOPEZ Physician Instructions: Reason For Exam: seizure disorder 05/27/18 13:14 Consult to Mental Health [CONS] Routine Reason For Exam: bipolar disorder Place consult to:: mental health Notified:: yes Phone number called:: [phone] Was contact made?: Yes If yes, spoke with:: lucian Time called:: 13:34 Comment:: amee Primary care physician: ROLAND MENSAH Hospitalization Reason for admission: seizure Condition: Critical Pertinent studies: Head cT Hospital course: Brief history: 68-year-old male with history of seizures on Trileptal compliant with his medication brought in by EMS for recurrent seizures. stated that patient had 5 generalized seizures apparently and multiple absence seizures over the last 24 hours. Patient also has history of bipolar disorder and AVM. He was given Keppra IV in the ER and admitted to the hospital for further evaluation and management. Discharge diagnosis: /Acute encephalopathy, resolved Postictal versus acute psychosis versus delirium Resumed his home medications for bipolar disorder, and seizure consulted psych, recommended to hold geodone /Status epilepticus Patient initiated on Keppra and also continued on Trileptal Neurology consult requested- ordered CT brain which has no acute finding Carbamazepine was also level low, Patient probably noncompliant His symptom improved with keppra and Trileptal, will cont both following dis charge /AVM (arteriovenous malformation) brain Stable, continue to have outpatient follow-up his Impulse control disorder likely secondary to left frontal AVM. DDx: R/O Bipolar DO Recommendation/Plan: Hold Geodon as it can lower the threshold for seizures. The patient and the patient's want to see a psychiatrist before Geodon is initiated. Psy sign off. / Hyperlipidemia: Continue statins / OAB (overactive bladder) Continue Detrol / Hyponatremia treated with IV fluids /Bipolar disorder Held his geodone per psych, and family will f/u with his psychiatrist outpt before starting Geodone / DVT and GI prophylaxis Patient initiated on Lovenox and PPI Physical exam: GENERAL: well-developed and well-nourished -[place] male lying on bed appeared NAD HEENT: Normocephalic. Atraumatic. No conjunctival congestion or icterus. Patient has moist mucous membranes. NECK: Supple. Trachea midline. CHEST/LUNGS: Clear to auscultated bilaterally, breathing nonlabored. No wheezes crackles or rhonchi. HEART/CARDIOVASCULAR: Regular in rate and rhythm. S1 and S2 positive. ABDOMEN: Abdomen is soft, nontender. Patient has normal bowel sounds. SKIN: There is no rash. Warm and dry. NEURO: No focal motor deficit. MUSCULOSKELETAL: No joint effusion or tenderness. EXTRIMITY: No edema, no cyanosis or clubbing. PSYCH: clam Disposition: [id number] HOME UND[facility] Time spent for discharge: 34 minutes Core Measure Documentation - Palliative Care Palliative Care/ Comfort Measures: Not Applicable - Core Measures Any of the following diagnoses?: none Exam - Constitutional Vitals: Temp Pulse Resp BP Pulse Ox 98.7 F 70 18 112/62 97 05/30/18 07:41 05/30/18 07:41 05/30/18 07:41 05/30/18 07:41 05/30/18 07:41 Plan Activity: advance as tolerated Weight Bearing Status: Weight Bear as Tolerated Diet: regular Follow up with: ROLAND MENSAH MD [Primary Care Provider] - 3-5 Days Prescriptions: levETIRAcetam [Keppra TAB] 750 mg PO BID #60 tablet
== END 2018-05-30 15:53 | disposition home health service (06) | DRG 100 ==
LOC: ED 10:11 → 2B-ACE 13:06
PROVIDERS: ADMIT Internal Medicine; ATTEND Internal Medicine
DX: G40.901 Epilepsy, unspecified, not intractable, with status epilepticus (principal); Q28.2 Arteriovenous malformation of cerebral vessels; E87.1 Hypo-osmolality and hyponatremia; N32.81 Overactive bladder; E78.5 Hyperlipidemia, unspecified; F31.9 Bipolar disorder, unspecified; Z82.49 Family history of ischemic heart disease and other diseases of the circulatory system; F63.9 Impulse disorder, unspecified
CPT/HCPCS: 36415; 70450; 80053; 80156; 80185; 80307; 80320; 81001; 83036; 85025; 93005; 93010; 95819; G0378; A9270-GY; G0480; J1630; J1650; J1953; J2060; J7030

== ENCOUNTER 2021-12-11 06:06 | Emergency (ER) | payer MEDICARE ==
[2021-12-11] MEDS ORDERED: levETIRAcetam 1000 MG/NS 0.75% 1,000 MG/100 ML BAG IV ONE (07:19)
[2021-12-11] MEDS ORDERED: SODIUM CHLORIDE 0.9% 1000 ML 1,000 ML IV ONE (07:19)
[2021-12-11 07:57] LABS: Hematocrit 47.8 % (35.5-45.6); Hemoglobin 15.1 gm/dl (11.8-15.2); Mean Corpuscular HGB Conc 32 % (32-34); Mean Corpuscular Volume 82 fl (84-94); Platelet Count 206 K/mm3 (140-440); Red Blood Count 5.87 M/mm3 (3.65-5.03); Red Cell Distribution Width 14.6 % (13.2-15.2)
--- NOTE | 2021-12-11 08:12 | Emergency Department Report ---
ED Seizure HPI - General Chief Complaint: Seizure Stated Complaint: SEPTIC, SZ Time Seen by Provider: 12/11/21 06:58 Source: EMS Mode of arrival: Stretcher Limitations: Altered Mental Status - History of Present Illness Initial Comments: 71-year-old male brought in by family member with an episode of seizure after missing his antiseizure medication dose yesterday morning. Patient has had several seizure episode after the initial one yesterday. Pt initially was diagnosis with seizure after he was subsequently noted to have AVM. No fever or chills reported of any other modifying or associated factors. Patient is stable currently postictal. Unsure what this patient's baseline mentation is at this point. MD Complaint: seizure - Related Data Home Medications Medication Instructions Recorded Confirmed Last Taken OXcarbazepine [Trileptal] 1,200 mg PO QAM 05/26/18 05/26/18 Unknown OXcarbazepine [Trileptal] 600 mg PO QPM 05/26/18 05/26/18 Unknown Pravastatin [Pravachol] 20 mg PO QHS 05/26/18 05/26/18 Unknown Tolterodine [Detrol LA] 2 mg PO QDAY 05/26/18 05/26/18 Unknown Previous Rx's Medication Instructions Recorded Last Taken Type levETIRAcetam [Keppra TAB] 750 mg PO BID #60 tablet 05/30/18 Unknown Rx Allergies Allergy/AdvReac Type Severity Reaction Status Date / Time No Known Allergies Allergy Unverified 05/26/18 10:35 ED Review of Systems ROS: Stated complaint: SEPTIC, SZ Other details as noted in HPI Comment: All other systems reviewed and negative Neurological: other (Seizure) ED Past Medical Hx - Past Medical History Hx Heart Attack/AMI: No Hx Sickle Cell Disease: No Hx Seizures: Yes Hx Dementia: No Additional medical history: avm. - Social History Smoking Status: Never Smoker - Medications Home Medications: Home Medications Medication Instructions Recorded Confirmed Last Taken Type OXcarbazepine [Trileptal] 1,200 mg PO QAM 05/26/18 05/26/18 Unknown History OXcarbazepine [Trileptal] 600 mg PO QPM 05/26/18 05/26/18 Unknown History Pravastatin [Pravachol] 20 mg PO QHS 05/26/18 05/26/18 Unknown History Tolterodine [Detrol LA] 2 mg PO QDAY 05/26/18 05/26/18 Unknown History levETIRAcetam [Keppra TAB] 750 mg PO BID #60 tablet 05/30/18 Unknown Rx ED Physical Exam - General Limitations: Altered Mental Status General appearance: postictal - Head Head exam: Present: atraumatic, normal inspection - Eye Eye exam: Present: normal appearance - ENT ENT exam: Present: normal exam, normal orophraynx, mucous membranes dry - Neck Neck exam: Absent: tenderness - Respiratory Respiratory exam: Present: normal lung sounds bilaterally. Absent: respiratory distress, wheezes, accessory muscle use - Cardiovascular Cardiovascular Exam: Present: regular rate, normal rhythm, normal heart sounds - GI/Abdominal GI/Abdominal exam: Present: soft, normal bowel sounds. Absent: distended, tenderness - Extremities Exam Extremities exam: Present: normal inspection, normal capillary refill - Back Exam Back exam: Absent: tenderness - Neurological Exam Neurological exam: Present: other (Postictal) - Skin Skin exam: Present: warm, normal color ED Course Vital Signs 12/11/21 12/11/21 12/11/21 06:11 07:39 07:46 Temperature 102.4 F H Pulse Rate 112 H 96 H Respiratory 16 17 21 Rate Blood Pressure Blood Pressure 154/90 [Right] O2 Sat by Pulse 93 100 Oximetry 12/11/21 12/11/21 12/11/21 08:00 08:16 08:30 Temperature Pulse Rate 96 H 99 H 105 H Respiratory 19 13 21 Rate Blood Pressure 144/73 152/74 142/71 Blood Pressure [Right] O2 Sat by Pulse 100 100 100 Oximetry 12/11/21 12/11/21 12/11/21 08:32 08:46 09:00 Temperature 99.6 F Pulse Rate 95 H 97 H Respiratory 17 22 Rate Blood Pressure 146/73 146/73 Blood Pressure [Right] O2 Sat by Pulse 100 100 Oximetry 12/11/21 12/11/21 12/11/21 09:16 09:30 09:46 Temperature Pulse Rate 90 99 H 99 H Respiratory 16 26 H 26 H Rate Blood Pressure 142/71 139/68 139/68 Blood Pressure [Right] O2 Sat by Pulse 100 100 100 Oximetry 12/11/21 12/11/21 12/11/21 10:02 10:16 10:29 Temperature 101.3 F H Pulse Rate 92 H 92 H Respiratory 14 24 Rate Blood Pressure Blood Pressure [Right] O2 Sat by Pulse 100 100 Oximetry 12/11/21 12/11/21 12/11/21 10:30 10:46 11:00 Temperature Pulse Rate 94 H 95 H 91 H Respiratory 29 H 19 18 Rate Blood Pressure 161/65 161/73 161/73 Blood Pressure [Right] O2 Sat by Pulse 98 99 97 Oximetry 12/11/21 12/11/21 12/11/21 11:16 11:30 11:46 Temperature Pulse Rate 86 84 86 Respiratory 17 15 15 Rate Blood Pressure 142/73 142/73 149/75 Blood Pressure [Right] O2 Sat by Pulse 100 100 100 Oximetry 12/11/21 12/11/21 12/11/21 12:00 12:16 12:22 Temperature 98.9 F Pulse Rate 92 H 89 Respiratory 18 18 Rate Blood Pressure 149/75 138/70 Blood Pressure [Right] O2 Sat by Pulse 100 100 Oximetry 12/11/21 12/11/21 12/11/21 12:30 12:46 13:00 Temperature Pulse Rate 88 85 86 Respiratory 14 15 21 Rate Blood Pressure 138/70 145/72 138/70 Blood Pressure [Right] O2 Sat by Pulse 99 100 97 Oximetry 12/11/21 12/11/21 12/11/21 13:16 13:30 13:46 Temperature Pulse Rate 83 87 89 Respiratory 17 22 16 Rate Blood Pressure 146/70 146/70 153/71 Blood Pressure [Right] O2 Sat by Pulse 94 95 96 Oximetry 12/11/21 12/11/21 14:00 14:16 Temperature Pulse Rate 101 H 89 Respiratory 10 L 23 Rate Blood Pressure 153/71 153/73 Blood Pressure [Right] O2 Sat by Pulse 97 97 Oximetry - Reevaluation(s) Reevaluation #1: 12/11/21 15:[address] Spencer while waiting for this patient transfer and acceptance--call made to [facility] and just waiting for call back- only taking trauma or stroke or burn-- then Call made to [facility] -- pending -- 12/11/21 15:10 12/11/21 15:11 Reevaluation #2: 12/11/21 15:29 I got a call from transfer center and waiting for neurologist call back -- - Consultations Consultation #1: 08/18/22 15:02 Dr Gurpreet Irizarry with teleneurology suggested transferring patient to facility with continuous EED monitoring -- ED Medical Decision Making - Lab Data Result diagrams: 12/11/21 07:29 12/11/21 07:29 - Radiology Data CT head with no acute findings - Medical Decision Making Here with possible seizure -- but considering this patients age differential such as stroke, myocardial infarction, hepatic encephalopathy, systemic infection with sepsis cannot be ruled out. In order to rule out those above we will go ahead and order CT scan of the brain considering his history of AVM, CBC, CMP, urinalysis, for any infectious process or electrolyte abnormality and thyroid panel for any hypo or hyper thyroidism. In the meantime we will go ahead and give Keppra 1 g IV piggyback x1 and added Versed 2 mg IV for repeated seizure with this patient continuous eye movement-- this raise concern for status epilepicus and need to get neurologist envolved-- Dr Gurpreet Irizarry consulted who recommend transfer to a place with continuous EEG monitor--also recommend adding 1 g of fosphenytoin and addition 1.5 g of Keppra. Critical care attestation.: If time is entered above; I have spent that time in minutes in the direct care of this critically ill patient, excluding procedure time. ED Disposition Clinical Impression: Seizure, Status epilepticus Uncontrolled seizures Qualifiers: Convulsion type: complex febrile Qualified Code(s): R56.01 - Complex febrile convulsions Disposition: 30 STILL A PATIENT Is pt being admited?: No Does the pt Need Aspirin: No Condition: Stable Referrals: PRIMARY CARE, [Primary Care Provider] - 3-5 Days
[2021-12-11 08:15] LABS: Alanine Aminotransferase 12 units/L (7-56); Albumin 4.3 g/dL (3.9-5); BUN/Creatinine Ratio 12; Blood Urea Nitrogen 12 mg/dL (9-20); Calcium 9.2 mg/dL (8.4-10.2); Hemolysis Index 5
--- NOTE | 2021-12-11 10:44 | Cat Scan Report ---
CT BRAIN: 12/11/2021 INDICATION / CLINICAL INFORMATION: Seizure. COMPARISON: CT brain 05/26/2018 FINDINGS: BRAIN/INTRACRANIAL STRUCTURES: Unenhanced CT images of the brain were obtained. Again seen is evidence of a large left frontal arteriovenous malformation with prominent tortuous yue ining veins. The overall size of the AVM, including associated surrounding vasculature and venous eng orgement is approximately 4.7 cm. It is difficult to evaluate for the true tinnitus by CT. There is no evidence of hemorrhage. Ventricles and sulci are otherwise normal for a patient of this a ge. EXTRACRANIAL STRUCTURES: Unremarkable. IMPRESSION: No acute abnormality. Stable appearance to large left frontal venous malformation. All CT scans at this location are performed using dose reduction to ALARA by means of automated expos ure control. Signer Name: Adrian Dunbar MD Signed: 12/11/2021 10:39 AM Workstation Name: [email or web address]
[2021-12-11 10:50] LABS: Band Neutrophils # (Manual) 0.1 K/mm3; Basophils % (Manual) 0 % (0.0-1.8); Eosinophils % (Manual) 0 % (0.0-4.3); Ovalocytes 1+; Platelet Estimate Consistent w Auto; Total Cells Counted 100
[2021-12-11] MEDS ORDERED: ACETAMINOPHEN 325 MG RECT SUPP PR ONE (11:00)
--- NOTE | 2021-12-11 14:53 | Consultation ---
History of Present Illness Consult date: 12/11/21 Reason for Consult: Seizure Chief complaint: Seizures History of present illness: 71 yo male with avm with seizure d/o, who presents s/p noncompliance (missed dose yesterday morning, per ED note) with AEDs (per chart, on trileptal and keppra at home) and noted with multiple seizures today, with the first one starting yesterday. Patient is not able to provide any clinical history. Patient received Ativan and also received a load of Keppra 1 gram iv x1 dose. Past History Past Medical History: seizures, other (avm) Past Surgical History: Other (unable to obtain secondary to loc;) Social history: other (unable to obtain secondary to loc;) Family history: other (unable to obtain secondary to loc;) Medications and Allergies Allergies Allergy/AdvReac Type Severity Reaction Status Date / Time No Known Allergies Allergy Unverified 05/26/18 10:35 Home Medications Medication Instructions Recorded Confirmed Last Taken Type OXcarbazepine [Trileptal] 1,200 mg PO QAM 05/26/18 05/26/18 Unknown History OXcarbazepine [Trileptal] 600 mg PO QPM 05/26/18 05/26/18 Unknown History Pravastatin [Pravachol] 20 mg PO QHS 05/26/18 05/26/18 Unknown History Tolterodine [Detrol LA] 2 mg PO QDAY 05/26/18 05/26/18 Unknown History levETIRAcetam [Keppra TAB] 750 mg PO BID #60 tablet 05/30/18 Unknown Rx Review of Systems ROS unobtainable: due to mental status Physical Examination - Vital Signs Vital Signs: Vital Signs Temp Pulse Resp BP Pulse Ox 102.4 F H 112 H 16 154/90 93 12/11/21 06:11 12/11/21 06:11 12/11/21 06:11 12/11/21 06:11 12/11/21 06:11 - Physical Exam Narrative exam: Gen: nad, well-nourished; Head: normocephalic; Eyes: right gaze deviation; ENT: minimal vocalization; CVS: warm and well-perfused; Pulm: no respiratory distress; GI: appears non-distended; Ext: no cyanosis appreciated at distal extremities; Skin: no acute rash at distal extremities; Heme: no pathologic ecchymosis appreciated at distal extremities; Neuro: obtunded, aphasic, mute, CN 2 - sluggish/reactive, visual bravo - pt cannot cooperate, CN 3, 4, 6 - right gaze deviation, CN 5 / CN 7 - eyes open with right gaze; not closing at present (aka. no blink), CN 8 - hearing grossly intact, CN 9, 10, 11, 12 - pt is not cooperative due to loc; Motor/Sensory - at least 3-/5 at left exts, 0/5 at right upper ext, & 1/5 at right lower ext to tactile stimuli; Cerebellar - pt cannot cooperate due to loc;, Gait - deferred secondary to fall risk; Results - Laboratory Findings CBC and BMP: 12/11/21 07:29 12/11/21 07:29 Abnormal Lab Findings: Abnormal Labs 12/11/21 12/11/21 07:29 07:29 WBC 12.2 H RBC 5.87 H Hct 47.8 H MCV 82 L MCH 26 L Seg Neuts % (Manual) 94.0 H Lymphocytes % (Manual) 2.0 L Seg Neutrophils # Man 11.5 H Lymphocytes # (Manual) 0.2 L Glucose 113 H Assessment and Plan 71 yo male with avm with seizure d/o, who presents s/p noncompliance (missed dose yesterday morning, per ED note) with AEDs (per chart, on trileptal and keppra at home) and noted with multiple seizures today, with the first one starting yesterday. Patient is not able to provide any clinical history. Patient is noted with a fever and received Ativan and also received a load of Keppra 1 gram iv x1 dose. 1. 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 2. Fever - aggressive treatment of underling infection/inflammation per primary team; if no peripheral fever source, differential include clinical informatics specialist inflammation / infection and/or neurogenic fever secondary to status epilepticus; workup per primary team. 3. AVM - per primary hospitalist, pt had workup done at [facility]; she has already spoken to [facility] and [facility] has accepted the patient for further management of the AVM and status epilepticus. 4. Case discussed with primary hospitalist and patient still requires higher level of care for this complex case of avm with complex partial status epi lepticus with a fever of unknown origin (at present). Gurpreet Irizarry MD Neurology [id number]
[2021-12-11] MEDS ORDERED: MIDAZOLAM 5 MG/5 ML INJ MDV IV NR ×2 (15:00→19:00)
[2021-12-11] MEDS ORDERED: levETIRAcetam 1,500 MG in DEXTROSE 5% IN WATER 100 ML IV SCH (16:00)
[2021-12-11] MEDS ORDERED: FOSPHENYTOIN 1,000 MG.PE in SODIUM CHLORIDE 0.9% 100 ML IV ONE (16:00)
--- NOTE | 2021-12-11 16:08 | Emergency Department Report ---
Blank Doc - Documentation Documentation: I received signout from Dr. Torres to discuss case with tele neurologist Dr. Shanta singh upon call back for transfer for continuous EEG monitoring due to possible. I was told that there was a concern that patient was in status epilepticus due to seizure activity prior to arrival, prolonged postictal state, and possible nystagmus/horizontal. I did discuss case with neurologist Dr. Eduardo [facility] neurologist and did a bedside evaluation. Patient apparently received Keppra 2.5 g and IV fosphenytoin 1 g and Versed 2mg (was ordered). Pt was initially looking to the left and blinking however, he made eye contact when spoken to. Patient attempts to speak with stuttering speech which is a change from his baseline. He follows all commands and has 4/5 right upper and right lower extremity strength with 5/5 left upper and and lower extremity strength which is chronic secondary to left frontal AVM as per patient's at the bedside. This was discussed with Dr. Eduardo who suggest that patient does not appear to be in status and does not need emergent transfer for continuous EEG at this time. They also do not have beds to accept the patient at this time. He is willing to place patient on waiting list. Upon further chart review patient presented with a fever of 102 with unclear cause (urine collection pending, Cxr ordered) I rediscussed case with Dr Vázquez tele neurology again who still feels that pt requires continuous EEG monitor. I will continue to hold pt in the ED 5p I Went into the room to update . Noticed patient having a seizure with nystagmus and rightward gaze. This lasted for several minutes. After cessation of this activity patient was responsive and following commands with stuttering speech. states that these are the this is the type of seizure he has had repeatedly and intermittently in the ED and prior and he has not made a full neurologic recovery between episodes. She also states pt often has a fever associated with his seizures I have ordered a cxr. UA collection has been pending since ordered at 7:20am. nurse instructed to straight cath pt at 4:50 informed that [facility] system does not have beds Case re-discussed with Dr Eduardo and I explained that pt is still having intermittent seizures and pt will remain on transfer list with upgraded acuity status 5:35pm called [facility] and at capacity Patient's home meds include: liquid Keppra 850 mg twice daily Ocarbazepine 300mg 4am and 2pm I reviewed MAR and Pt never received the versed ordered at 3pm. I spoke to nurse and instructed her to give ativan 2mg instead. I was informed that Ativan is out of stock. Nurse instructed to now give Versed 5 mg. The default order in [facility] for Versed is ordered "NR" instead of start and therefore nurse was unable to see the original versed order. I have adjusted the orderer for Versed 5mg STAT. Patient has a bed acceptance at [facility] as of 6:30pm Patient received Versed 5 mg IV at 6:35 PM. Patient reassessed intermittently and as well 7:48 PM patient continues to sleep without further seizure activity. Transport pending 50 Minutes of critical care time excluding procedures were used in the care of the patient. I discussed treatment plan with the nursing team members. I reviewed electronic record. I spoke with family to obtain medical history. Patient required multiple interventions and reassessments. Spoke with hospitalist and consultants for collaborative care and coordinated transfer to higher level of care UA and covid negative, cxr negative
--- NOTE | 2021-12-11 16:46 | XRay Report ---
CHEST 1 VIEW 12/11/2021 3:40 PM INDICATION / CLINICAL INFORMATION: fever. COMPARISON: None available. FINDINGS: SUPPORT DEVICES: None. HEART / MEDIASTINUM: No significant abnormality. LUNGS / PLEURA: No significant pulmonary or pleural abnormality. No pneumothorax. ADDITIONAL FINDINGS: No significant additional findings. IMPRESSION: 1. No acute findings. Signer Name: Tommy Farrell MD Signed: 12/11/2021 4:42 PM Workstation Name: [id number]
[2021-12-11] MEDS ORDERED: LORazepam 2 MG/ML VIAL IV ONE (18:25)
[2021-12-11] MEDS ORDERED: MIDAZOLAM 5 MG/5 ML INJ MDV IV STA (18:32)
[2021-12-11 19:20] LABS: Color,Urine Straw (Yellow)
[2021-12-11 21:38] VITALS: BP 132/63
[2021-12-11] MEDS ORDERED: PHENYTOIN 100 MG/2 ML VIAL IV SCH (22:00)
--- NOTE | 2021-12-12 22:15 | Electrocardiograph Report ---
[facility] Test Date: 2021-12-11 Test Time: 07:53:19 Pat Name: GIL WALL JR Department: Room: Gender: M [employer] Technical Architect: NURSE : 1950 Requested By: KOREY TURNER Order Number: [id number] Reading MD: Louise Amaya Measurements Intervals [place] Rate: 97 P: 76 MA: 158 QRS: 3 QRSD: 94 T: 46 QT: 340 QTc: 433 Interpretive Statements Sinus rhythm Probable left atrial enlargement Inferior infarct, old possible Anteroseptal infarct, age indeterminate No previous ECG available for comparison Electronically Signed On 12-12-2021 22:14:21 EDT by Louise Amaya
== END 2021-12-11 21:38 | disposition still patient (30) ==
LOC: ED 06:06
DX: R56.01 Complex febrile convulsions (principal); Z20.822 Contact with and (suspected) exposure to COVID-19
CPT/HCPCS: 36415; 70450; 71045; 80053; 80177; 81001; 83735; 85007; 85025; 93005; 96365; 96375; 99285; J1953; J2250; J7030; J7060; Q2009; U0003